=== PATIENT | female | born 1950 | race Caucasian/White ===

== ENCOUNTER 2017-06-02 15:10 | Inpatient (IN) | payer OTHER, BC ==
[~2017-06-02] VITALS: Ht 160 cm; Wt 85.0 kg
[~2017-06-02 15:10] MED LIST: ASPIR 8181 M1; B12 HEALTH1000 MCG/1 PO; DIOVAN HCT 11 TABLE1 PO; GLYBURIDE METF PO; LOVENOX80 MG/0.8 SC; LYRICA75 MG PO; PLAVIX75 MG PO; PRAVASTATIN SOD80 MG PO; WARFARIN SODIUM5 MG
[2017-06-02 15:20] LABS: BASOPHIL (%) 0.6 % (0-1); BASOPHIL COUNT 0.1 K/uL (0-0.1); EOSINOPHIL (%) 0.5 % (0-5); EOSINOPHIL COUNT 0.1 K/uL (0-0.3); HEMATOCRIT 45.6 % (36.0-46.0); HEMOGLOBIN 15.9 G/DL (11.9-15.5); IMMATURE GRANULOCYTE (%) 0.5 % (0.0-0.7); LYMPHOCYTE (%) 28.9 % (15-42); LYMPHOCYTE COUNT 3.1 K/uL (1.0-2.8); MCH 32.7 PG (29.0-34.0); MCHC 34.9 G/DL (30.0-36.0); MCV 93.8 FL (83-99); MONOCYTE (%) 8.2 % (3-12); MONOCYTE COUNT 0.9 K/uL (0-0.8); NEUTROPHIL (%) 61.3 % (45-76); NEUTROPHIL COUNT 6.5 K/uL (1.8-6.4); PLATELET COUNT 196 K/uL (156-360); RBC DIS.WIDTH-CV 11.9 % (11.8-14.6); RBC DIS.WIDTH-SD 41.5 % (39-53); RED BLOOD COUNT 4.86 M/uL (3.80-5.20); WHITE BLOOD COUNT 10.7 K/uL (4.1-10.2)
[2017-06-02 15:27] LABS: INTER. NORMALIZED RATIO 1.9
[2017-06-02 15:30] LABS: PTT 34.3 SEC (25-37)
[2017-06-02 15:31] LABS: AMYLASE 35 IU/L (1-118); CHLORIDE 103 mEq/L (99-109); POTASSIUM 4.5 mEq/L (3.7-5.4); SODIUM 137 mEq/L (136-147)
[2017-06-02 15:33] LABS: GLUCOSE 134 mg/dL (70-99)
[2017-06-02 15:36] LABS: SERUM ETHYL ALCOHOL < 10 mg/dL
[2017-06-02 15:37] LABS: CREATININE 0.8 mg/dL (0.6-1.3); GFR ESTIMATE (CALCULATED) > 59 mL/min/
[2017-06-02 15:38] LABS: UREA NITROGEN (BUN) 18 mg/dL (9-23)
[2017-06-02 15:40] LABS: LIPASE 25 U/L (1.0-51.0)
[2017-06-02 15:46] LABS: TROP-I INTERPRETATION NEGATIVE; TROPONIN-I 0.01 ng/mL (0.0-0.30)
[2017-06-02] MEDS ORDERED: LEVEMIR FL100 UNIT/1 SC (17:28)
[2017-06-02] MEDS ORDERED: LISINOPRIL20 MG PO (17:28)
[2017-06-02] MEDS ORDERED: METFORMIN HCL1000 MG PO (17:28)
[2017-06-02] MEDS ORDERED: NOVOLOG PE100 UNITS/ PO (19:52)
[2017-06-02 19:54] LABS: APPEARANCE CLOUDY ((CLEAR)); BILIRUBIN NEGATIVE; BLOOD SMALL; COLOR YELLOW ((YELLOW)); GLUCOSE (STRIP) NEGATIVE; KETONES NEGATIVE; LEUKOCYTES LARGE; NITRITE NEGATIVE; PROTEIN (STRIP) >=500; SPECIFIC GRAVITY 1.016 (1.000-1.030); UROBILINOGEN 0.2 MG/DL (0.2-1.0)
[2017-06-02 20:01] LABS: BACTERIA 3+ /HPF; EPITHELIAL CELLS RARE /HPF; HYALINE CASTS 0-5 /LPF; MUCUS TRACE /LPF; UCUL ADDED? YES; WHITE BLOOD CELLS TNTC /HPF (0-5)
[2017-06-02 20:01] LABS: HDL CHOLESTEROL 43 MG/DL (Desirable>=50); LDL CHOLESTEROL 116 mg/dL (Desirable<100); NON-HDL CHOLESTEROL 178 mg/dL (Desirable<160); TOTAL CHOLESTEROL 221 mg/dL (Desirable<200); TRIGLYCERIDES 309 MG/DL (Normal: <150)
[2017-06-02 20:02] LABS: AMPHETAMINE NEGATIVE (500 ng/mL); BARBITURATES NEGATIVE (200 ng/mL); BENZODIAZEPINES NEGATIVE (150 ng/mL); BUPRENORPHINE NEGATIVE (10 ng/mL); COCAINE NEGATIVE (150 ng/mL); METHADONE NEGATIVE (200 ng/mL); METHAMPHETAMINE NEGATIVE (500 ng/mL); OPIATES (MORPHINE) NEGATIVE (100 ng/mL); OXYCODONE NEGATIVE (100 ng/mL); PHENCYCLIDINE NEGATIVE (25 ng/mL); PROPOXYPHENE NEGATIVE (300 ng/mL); THC CANNABINOIDS NEGATIVE (50 ng/mL); TRICYCLIC ANTIDEPRESSANTS NEGATIVE (300 ng/mL)
[2017-06-02 20:04] LABS: HEMOGLOBIN A1c (GLYCOHEMOGLOB) 7.6 % HGB (Below 5.7)
[2017-06-02 20:44] LABS: HEMATOCRIT 41.8 % (36.0-46.0); HEMOGLOBIN 14.6 G/DL (11.9-15.5); MCH 32.9 PG (29.0-34.0); MCHC 34.9 G/DL (30.0-36.0); MCV 94.1 FL (83-99); PLATELET COUNT 174 K/uL (156-360); RBC DIS.WIDTH-CV 11.9 % (11.8-14.6); RBC DIS.WIDTH-SD 41.1 % (39-53); RED BLOOD COUNT 4.44 M/uL (3.80-5.20); WHITE BLOOD COUNT 9.3 K/uL (4.1-10.2)
[2017-06-02 23:55] VITALS: BP 221/93
[2017-06-03 02:34] VITALS: BP 212/102
[2017-06-03 03:38] VITALS: BP 197/90
[2017-06-03 06:20] LABS: INTER. NORMALIZED RATIO 1.6
[2017-06-03 06:43] LABS: CHLORIDE 100 MEQ/L (99-109); CREATININE 0.8 MG/DL (0.6-1.3); GFR ESTIMATE (CALCULATED) > 59 mL/min/; GLUCOSE 177 mg/dL (70-99); POTASSIUM 4.5 MEQ/L (3.7-5.4); SODIUM 136 MEQ/L (136-147); UREA NITROGEN (BUN) 16 mg/dL (9-23)
[2017-06-03 08:24] VITALS: BP 206/95
[2017-06-03 12:34] VITALS: BP 165/89
[2017-06-03 16:09] VITALS: BP 173/86
[2017-06-03 19:25] VITALS: BP 189/78
[2017-06-04 00:07] VITALS: BP 174/93
[2017-06-04 04:10] VITALS: BP 171/93
[2017-06-04 07:04] LABS: INTER. NORMALIZED RATIO 1.7
[2017-06-04 07:56] VITALS: BP 179/90
[2017-06-04 08:24] LABS: HEMATOCRIT 44.3 % (36.0-46.0); HEMOGLOBIN 15.2 G/DL (11.9-15.5); MCH 32.8 PG (29.0-34.0); MCHC 34.3 G/DL (30.0-36.0); MCV 95.7 FL (83-99); PLATELET COUNT 184 K/uL (156-360); RBC DIS.WIDTH-CV 12.1 % (11.8-14.6); RBC DIS.WIDTH-SD 42.1 % (39-53); RED BLOOD COUNT 4.63 M/uL (3.80-5.20); WHITE BLOOD COUNT 8.7 K/uL (4.1-10.2)
[2017-06-04 08:44] LABS: CHLORIDE 98 MEQ/L (99-109); CREATININE 0.8 MG/DL (0.6-1.3); GFR ESTIMATE (CALCULATED) > 59 mL/min/; GLUCOSE 225 mg/dL (70-99); POTASSIUM 4.6 MEQ/L (3.7-5.4); SODIUM 135 MEQ/L (136-147); UREA NITROGEN (BUN) 19 mg/dL (9-23)
[2017-06-04 11:16] VITALS: BP 145/90
[2017-06-04 15:44] VITALS: BP 160/92
[2017-06-04 19:46] VITALS: BP 198/96
[2017-06-05 01:17] VITALS: BP 177/83
[2017-06-05 04:38] VITALS: BP 168/84
[2017-06-05 07:14] VITALS: BP 186/96
[2017-06-05 11:20] VITALS: BP 197/93
[2017-06-05 16:30] VITALS: BP 147/97
[2017-06-05 20:02] VITALS: BP 195/92
[2017-06-06 00:27] VITALS: BP 188/98
[2017-06-06 04:08] VITALS: BP 191/86
[2017-06-06 05:49] LABS: INTER. NORMALIZED RATIO 2.1
[2017-06-06 08:20] VITALS: BP 162/87
[2017-06-06 12:04] VITALS: BP 166/81
[2017-06-06] MEDS ORDERED: ECOTRIN325 MG PO (14:30)
[2017-06-06] MEDS ORDERED: APRESOLINE50 MG PO (14:33)
[2017-06-06] MEDS ORDERED: CEFTIN500 MG PO (14:34)
== END 2017-06-06 13:22 | DRG 65 ==
LOC: EME 15:10 → 5SOUTH 18:13 → EDOF 18:13 → ENRESERV 18:25 → 5SOUTH 22:58 → ENPENDDIS 06-06 11:36 → 5SOUTH 06-06 13:22
PROVIDERS: Emergency Medicine; Hospitalist; Internal Medicine; Physician Assistant
DX: I63.40 Cerebral infarction due to embolism of unspecified cerebral artery (principal); I16.1 Hypertensive emergency; D68.32 Hemorrhagic disorder due to extrinsic circulating anticoagulants; T45.515A Adverse effect of anticoagulants, initial encounter; E11.40 Type 2 diabetes mellitus with diabetic neuropathy, unspecified; E78.5 Hyperlipidemia, unspecified; Z86.718 Personal history of other venous thrombosis and embolism; N39.0 Urinary tract infection, site not specified; B96.20 Unspecified Escherichia coli [E. coli] as the cause of diseases classified elsewhere; R29.810 Facial weakness; R47.1 Dysarthria and anarthria; G81.94 Hemiplegia, unspecified affecting left nondominant side; R09.02 Hypoxemia; J98.11 Atelectasis; Z95.1 Presence of aortocoronary bypass graft; I10 Essential (primary) hypertension; Z79.4 Long term (current) use of insulin; Z86.72 Personal history of thrombophlebitis; F17.210 Nicotine dependence, cigarettes, uncomplicated; Z79.01 Long term (current) use of anticoagulants; E11.51 Type 2 diabetes mellitus with diabetic peripheral angiopathy without gangrene
CPT/HCPCS: 70450; 70544; 70551; 71046; 80048; 80061; 81003; 82150; 82948; 83036; 83690; 84484; 85025; 85027; 85610; 85730; 86850; 86900; 86901; 87077; 87086; 87186; 92507 GN; 92523 GN; 92610 GN; 93005; 93306; 93880; 94799; 97530 GP; 99281; 99285; G0480; J0360; J0696; J1815

== ENCOUNTER 2017-06-06 11:45 | Inpatient (IN) | payer OTHER, BC ==
[~2017-06-06] VITALS: Ht 160 cm; Wt 81.2 kg
[~2017-06-06 11:45] MED LIST changes: +LEVEMIR FL100 UNIT/1 SC; +LISINOPRIL20 MG PO; +METFORMIN HCL1000 MG PO; +NOVOLOG PE100 UNITS/ PO
[2017-06-06 13:49] VITALS: BP 142/76
[2017-06-06] MEDS ORDERED: ECOTRIN325 MG PO (14:30)
[2017-06-06] MEDS ORDERED: APRESOLINE50 MG PO (14:33)
[2017-06-06] MEDS ORDERED: CEFTIN500 MG PO (14:34)
[2017-06-07 00:18] VITALS: BP 110/52
[2017-06-07 05:30] LABS: HEMATOCRIT 44.1 % (36.0-46.0); HEMOGLOBIN 14.9 G/DL (11.9-15.5); MCH 32.2 PG (29.0-34.0); MCHC 33.8 G/DL (30.0-36.0); MCV 95.2 FL (83-99); PLATELET COUNT 176 K/uL (156-360); RBC DIS.WIDTH-CV 12.2 % (11.8-14.6); RBC DIS.WIDTH-SD 42.5 % (39-53); RED BLOOD COUNT 4.63 M/uL (3.80-5.20); WHITE BLOOD COUNT 7.8 K/uL (4.1-10.2)
[2017-06-07 05:37] LABS: INTER. NORMALIZED RATIO 2.2
[2017-06-07 06:05] VITALS: BP 155/71
[2017-06-07 06:55] LABS: ALBUMIN 3.3 G/DL (3.2-4.8); ALKALINE PHOSPHATASE 58 IU/L (3-129); ALT (GPT) 9 IU/L (3-49); AST (GOT) 12 IU/L (2-34); CHLORIDE 99 MEQ/L (99-109); CREATININE 1.1 MG/DL (0.6-1.3); GFR ESTIMATE (CALCULATED) 53 mL/min/; POTASSIUM 4.2 MEQ/L (3.7-5.4); SODIUM 136 MEQ/L (136-147); TOTAL BILIRUBIN 0.4 MG/DL (0.0-1.0); TOTAL PROTEIN 5.9 G/DL (6.4-8.3)
[2017-06-07 06:58] LABS: GLUCOSE 88 mg/dL (70-99); UREA NITROGEN (BUN) 34 mg/dL (9-23)
[2017-06-07 13:55] VITALS: BP 118/57
[2017-06-07 15:00] VITALS: BP 140/64
[2017-06-07 21:03] VITALS: BP 143/71
[2017-06-08 04:16] VITALS: BP 127/58
[2017-06-08 06:42] LABS: CHLORIDE 102 MEQ/L (99-109); CREATININE 1.4 MG/DL (0.6-1.3); GFR ESTIMATE (CALCULATED) 40 mL/min/; GLUCOSE 73 mg/dL (70-99); POTASSIUM 4.8 MEQ/L (3.7-5.4); SODIUM 137 MEQ/L (136-147); UREA NITROGEN (BUN) 45 mg/dL (9-23)
[2017-06-08 09:22] VITALS: BP 137/63
[2017-06-08 15:17] LABS: INTER. NORMALIZED RATIO 2.2
[2017-06-08 16:45] VITALS: BP 133/64
== END 2017-06-08 23:34 | DRG 57 ==
LOC: 3WEST 11:45
PROVIDERS: Physical Medicine & Rehabilitation Pain Medicine
PROC: F07M0ZZ Range of Motion and Joint Mobility Treatment of Musculoskeletal System - Whole Body (ICD-10-PCS; principal; 2017-06-06)
DX: I69.354 Hemiplegia and hemiparesis following cerebral infarction affecting left non-dominant side (principal); E87.1 Hypo-osmolality and hyponatremia; I10 Essential (primary) hypertension; E11.51 Type 2 diabetes mellitus with diabetic peripheral angiopathy without gangrene; I08.3 Combined rheumatic disorders of mitral, aortic and tricuspid valves; E78.5 Hyperlipidemia, unspecified; F17.200 Nicotine dependence, unspecified, uncomplicated; I69.322 Dysarthria following cerebral infarction; I69.391 Dysphagia following cerebral infarction; R13.10 Dysphagia, unspecified; R09.02 Hypoxemia; Z79.01 Long term (current) use of anticoagulants; Z86.718 Personal history of other venous thrombosis and embolism; E11.65 Type 2 diabetes mellitus with hyperglycemia
CPT/HCPCS: 70450; 70551; 71045; 80048; 80053; 82948; 85027; 85610; 92523 GN; 94799; J1815

== ENCOUNTER 2017-06-08 19:56 | Inpatient (IN) | payer OTHER, BC ==
[~2017-06-08] VITALS: Ht 167.6 cm; Wt 82.0 kg
[~2017-06-08 19:56] MED LIST changes: +APRESOLINE50 MG PO; +CEFTIN500 MG PO; +ECOTRIN325 MG PO
[2017-06-08 23:54] VITALS: BP 145/73
[2017-06-09 01:31] LABS: HDL CHOLESTEROL 34 MG/DL (Desirable>=50); LDL CHOLESTEROL 89 mg/dL (Desirable<100); NON-HDL CHOLESTEROL 121 mg/dL (Desirable<160); TOTAL CHOLESTEROL 155 mg/dL (Desirable<200); TRIGLYCERIDES 159 MG/DL (Normal: <150)
[2017-06-09 03:10] VITALS: BP 142/78
[2017-06-09 06:18] LABS: INTER. NORMALIZED RATIO 2.3
[2017-06-09 09:12] VITALS: BP 152/70
[2017-06-09 09:56] LABS: HEMOGLOBIN A1c (GLYCOHEMOGLOB) 7.4 % (Below 5.7)
[2017-06-09 13:47] VITALS: BP 164/82
[2017-06-09 17:29] VITALS: BP 158/76
[2017-06-09 20:29] VITALS: BP 147/90
[2017-06-09 23:56] VITALS: BP 194/98
[2017-06-10 07:04] LABS: INTER. NORMALIZED RATIO 1.8
[2017-06-10 07:51] VITALS: BP 185/87
[2017-06-10 12:24] VITALS: BP 134/89
[2017-06-10 16:36] VITALS: BP 208/96
[2017-06-10 18:24] VITALS: BP 185/80
[2017-06-10 19:58] VITALS: BP 153/93
[2017-06-10 23:59] VITALS: BP 190/92
[2017-06-11 04:33] VITALS: BP 192/88
[2017-06-11 07:25] VITALS: BP 115/74
[2017-06-11 07:25] LABS: INTER. NORMALIZED RATIO 1.6
[2017-06-11 11:05] VITALS: BP 123/86
[2017-06-11 16:37] VITALS: BP 160/90
[2017-06-11 19:41] VITALS: BP 188/80
[2017-06-12] VITALS (7 sets, daily range): BP systolic 168–214; BP diastolic 74–108
[2017-06-12 09:31] LABS: INTER. NORMALIZED RATIO 1.6
[2017-06-12 12:00] LABS: CHLORIDE 108 MEQ/L (99-109); CREATININE 0.7 MG/DL (0.6-1.3); GFR ESTIMATE (CALCULATED) > 59 mL/min/; GLUCOSE 175 mg/dL (70-99); POTASSIUM 4.7 MEQ/L (3.7-5.4); SODIUM 140 MEQ/L (136-147); UREA NITROGEN (BUN) 19 mg/dL (9-23)
[2017-06-13] VITALS (9 sets, daily range): BP systolic 127–200; BP diastolic 60–88
[2017-06-13 05:20] LABS: HEMATOCRIT 41.4 % (36.0-46.0); HEMOGLOBIN 13.8 G/DL (11.9-15.5); MCH 31.7 PG (29.0-34.0); MCHC 33.3 G/DL (30.0-36.0); MCV 95.2 FL (83-99); PLATELET COUNT 219 K/uL (156-360); RBC DIS.WIDTH-CV 11.8 % (11.8-14.6); RBC DIS.WIDTH-SD 41.7 % (39-53); RED BLOOD COUNT 4.35 M/uL (3.80-5.20); WHITE BLOOD COUNT 7.8 K/uL (4.1-10.2)
[2017-06-13 05:27] LABS: INTER. NORMALIZED RATIO 1.9
[2017-06-14 04:00] VITALS: BP 135/75
[2017-06-14 07:04] LABS: BASOPHIL COUNT 0.1 K/uL (0-0.1); EOSINOPHIL (%) 1.6 % (0-5); EOSINOPHIL COUNT 0.1 K/uL (0-0.3); HEMATOCRIT 41.4 % (36.0-46.0); IMMATURE GRANULOCYTE (%) 0.3 % (0.0-0.7); LYMPHOCYTE (%) 27.8 % (15-42); LYMPHOCYTE COUNT 2.1 K/uL (1.0-2.8); MCHC 33.8 G/DL (30.0-36.0); MCV 94.5 FL (83-99); MONOCYTE (%) 8.6 % (3-12); MONOCYTE COUNT 0.7 K/uL (0-0.8); NEUTROPHIL (%) 60.7 % (45-76); NEUTROPHIL COUNT 4.7 K/uL (1.8-6.4); PLATELET COUNT 212 K/uL (156-360); RBC DIS.WIDTH-CV 11.9 % (11.8-14.6); RBC DIS.WIDTH-SD 41.2 % (39-53); RED BLOOD COUNT 4.38 M/uL (3.80-5.20); WHITE BLOOD COUNT 7.7 K/uL (4.1-10.2)
[2017-06-14 07:29] LABS: INTER. NORMALIZED RATIO 2.5
[2017-06-14 08:28] LABS: CHLORIDE 104 MEQ/L (99-109); CREATININE 0.6 MG/DL (0.6-1.3); GFR ESTIMATE (CALCULATED) > 59 mL/min/; GLUCOSE 164 mg/dL (70-99); POTASSIUM 4.2 MEQ/L (3.7-5.4); SODIUM 141 MEQ/L (136-147); UREA NITROGEN (BUN) 19 mg/dL (9-23)
[2017-06-14 08:44] VITALS: BP 187/87
[2017-06-14 16:08] VITALS: BP 193/83
[2017-06-14 16:53] LABS: C DIFF TOXIN NEGATIVE (NEGATIVE)
[2017-06-14 17:21] VITALS: BP 149/72
[2017-06-14 19:29] VITALS: BP 159/71
[2017-06-15 00:14] VITALS: BP 131/62
[2017-06-15 07:27] LABS: INTER. NORMALIZED RATIO 2.6
[2017-06-15 08:38] VITALS: BP 145/86
[2017-06-15 11:38] VITALS: BP 174/79
[2017-06-15 16:26] VITALS: BP 114/66; BP 190/84
[2017-06-15 20:27] VITALS: BP 183/80
[2017-06-15 20:35] VITALS: BP 170/76
[2017-06-16 00:19] VITALS: BP 164/72
[2017-06-16 04:54] VITALS: BP 180/78
[2017-06-16 07:34] VITALS: BP 180/83
[2017-06-16] MEDS ORDERED: HYDRALAZINE HCL50 MG PO (10:48)
[2017-06-16] MEDS ORDERED: LEVEMIR100 UNIT/2 SC (10:52)
[2017-06-16] MEDS ORDERED: NOVOLOG PE100 UNITS/ SC (10:53)
[2017-06-16] MEDS ORDERED: GLIPIZIDE5 MG PO (10:53)
[2017-06-16] MEDS ORDERED: ATORVASTATIN CA80 MG PO (10:54)
[2017-06-16] MEDS ORDERED: COUMADIN1 MG PO (10:55)
[2017-06-16] MEDS ORDERED: METOPROLOL TART50 MG PO (10:56)
[2017-06-16 11:54] VITALS: BP 144/65
== END 2017-06-16 13:53 | disposition designated cancer center or children's hospital (05) | DRG 64 ==
LOC: 5SOUTH 19:56 → ENRESERV 19:57 → 5SOUTH 23:38
PROVIDERS: Hospitalist; Physician Assistant
DX: I63.511 Cerebral infarction due to unspecified occlusion or stenosis of right middle cerebral artery (principal); I69.354 Hemiplegia and hemiparesis following cerebral infarction affecting left non-dominant side; I69.322 Dysarthria following cerebral infarction; I69.391 Dysphagia following cerebral infarction; R13.10 Dysphagia, unspecified; J69.0 Pneumonitis due to inhalation of food and vomit; I10 Essential (primary) hypertension; E11.51 Type 2 diabetes mellitus with diabetic peripheral angiopathy without gangrene; R19.7 Diarrhea, unspecified; Z88.2 Allergy status to sulfonamides; Z88.1 Allergy status to other antibiotic agents; Z91.040 Latex allergy status; Z91.041 Radiographic dye allergy status; Z88.6 Allergy status to analgesic agent; Z79.01 Long term (current) use of anticoagulants; Z95.820 Peripheral vascular angioplasty status with implants and grafts; Z79.4 Long term (current) use of insulin; Z79.82 Long term (current) use of aspirin
CPT/HCPCS: 70450; 74230; 80048; 80061; 82948; 83036; 85025; 85027; 85610; 87493; 92507 GN; 92526 GN; 92610 GN; 92611 GN; 94799; 97530 GO; 97530 GP; J0295; J0360; J1650; J1815; J2405; J7030; J7040; J7050